=== PATIENT | female | born 1985 | race Caucasian/White ===

== ENCOUNTER 2018-05-20 03:00 | Emergency (ER) | payer OTHER ==
[~2018-05-20] VITALS: Ht 165.1 cm; Wt 65.8 kg
[2018-05-20 03:12] VITALS: BP 122/72
[2018-05-20] MEDS ORDERED: HYDROcodone/APAP 5/325 MG 1 TAB TAB PO ONE (05:45)
[2018-05-20 06:03] VITALS: BP 119/68
== END 2018-05-20 06:03 | disposition home or self-care (01) ==
LOC: MED 03:00
DX: N39.0 Urinary tract infection, site not specified (principal)
CPT/HCPCS: 81002; 81025; 99283